=== PATIENT | male | born 1940 | race Caucasian/White ===

== ENCOUNTER → 2024-01-05 09:21 | Outpatient (REF) | payer MEDICARE, OTHER, SELFPAY ==
[2024-01-05 11:19] LABS: % Basophils 1.3 % (0-2); % Eosinophils 7.1 % (0-6); % Immature Granulocytes 0.4 % (0-0.5); % Lymphocytes 20.5 % (20.5-51.1); % Monocytes 9.7 % (1.7-9.3); Absolute Basophils 0.1 10^3/uL (0-0.2); Absolute Eosinophils 0.4 10^3/uL (0-0.7); Absolute Lymphocytes 1.1 10^3/uL (1.2-3.4); Absolute Monocytes 0.5 10^3/uL (0.1-0.6); Absolute Neutrophils 3.3 10^3/uL (1.4-6.5); Hemoglobin 12.8 g/dL (13.0-18.0); Mean Corp Hgb Conc. 33.7 g/dL (33.0-37.0); Mean Corpuscular Hgb 31.8 pg (27.0-31.0); Mean Corpuscular Volume 94.3 fL (80.0-94.0); Mean Platelet Volume 9.6 fL (7.4-10.4); Nucleated Red Blood Cells % 0 % (-); Platelet Count 240 10^3/uL (130-400); Red Blood Cell Count 4.03 10^6/uL (4.70-6.10); Red Cell Dist. Width 12.2 % (11.5-14.5); White Blood Cell Count 5.4 10^3/uL (4.8-10.8)
[2024-01-05 11:49] LABS: ALT (SGPT) 12 U/L (0-50); AST (SGOT) 25 U/L (17-59); Alkaline Phosphatase 83 U/L (38-126); Blood Urea Nitrogen 21 mg/dl (9-20); Calcium 9.7 mg/dl (8.4-10.2); Carbon Dioxide 28 mmol/L (22-30); Chloride 105 mmol/L (98-107); Glucose 107 mg/dl (70-99); HDL Cholesterol 58 mg/dl; LDL Cholesterol, Calculated 59 mg/dl; Potassium 4.5 mmol/L (3.5-5.1); Sodium 139 mmol/L (135-145); Total Bilirubin 0.8 mg/dl (0.2-1.3); Total Cholesterol 137 mg/dl (50-199); Total Protein 6.7 g/dl (6.3-8.2); Triglyceride 100 mg/dl (10-149); Very Low Density Lipoprotein 20 mg/dl (0-30); eGFR > 60.00
[2024-01-05 12:03] LABS: Free T4 1.27 ng/dl (0.78-2.19)
[2024-01-05 12:17] LABS: PSA, Total - Screen 0.87 ng/ml (0.0-4.0); TSH < 0.02 uIU/ml (0.47-4.68)
== END ==
LOC: REG 09:21
PROVIDERS: ATTENDING PHYSICIAN Family Medicine
DX: N18.32 Chronic kidney disease, stage 3b (principal); E03.9 Hypothyroidism, unspecified; E78.2 Mixed hyperlipidemia; I10 Essential (primary) hypertension; Z12.5 Encounter for screening for malignant neoplasm of prostate
CPT/HCPCS: 36415; 80053; 80061; 84439; 84443; 85025; G0103

== ENCOUNTER 2024-02-22 09:28 | Emergency (ER) | payer MEDICARE, OTHER, SELFPAY ==
[2024-02-22 09:43] VITALS: BP 144/74
[2024-02-22 09:58] VITALS: BMI 23.4
[2024-02-22 09:59] VITALS: BP 144/80
[2024-02-22 10:00] VITALS: BP 144/80
--- NOTE | 2024-02-22 10:25 | ED.MUSCINJ ---
HPI-Injury
General
Chief Complaint: Fall
Source: patient
Exam Limitations: none
Time Seen by Provider: 02/22/24 10:17
History of Present Illness-Injury
Initial Injury comments:
83-year-old male presents after a fall he sustained 2 days ago he tripped and hit the right side of his head and injured his neck. He notes increased neck pain and stiffness today. He denies any numbness or weakness to the arms or legs. No bowel
or bladder dysfunction. He denies significant headache. He is on Plavix. No other complaints at this time
Past History
Past History
ED Past Medical History: GERD, HTN, Hypercholesterolemia, Hypothyroidism and Other (Osteoarthritis, carotid artery stenosis status post right carotid endarterectomy, transient global amnesia, colon polyps, hiatal hernia, Schatzki's ring, chronic
kidney disease, kidney stones, gout, degenerative disc disease, basal cell carcinoma, prediabetes)
Social History
Tobacco: Former smoker
Phy Exam
Physical Exam
Physical Exam:
General: Well-appearing male no acute respiratory distress
HEENT: Normocephalic atraumatic
Heart: Regular rate and rhythm no murmurs
Lungs: Clear no wheeze or rales
Musculoskeletal exam: Tenderness noted diffusely about the cervical spine but good range of motion all extremities cervical spine and collar
Neurologic: Alert and oriented no facial asymmetry good strength to the upper and lower extremities conversing appropriately
Injury Course
Orders/Labs/Results
Orders:
Orders
02/22/24 10:[address] Cervical Spine W/o Iv Contr Urgent
Comment:
Reason For Exam: fall
CT Head W/o Iv Contrast Urgent
Comment:
Reason For Exam: fall
MDM/Problems Addressed
Differential Diagnosis Includes:
Mechanical fall with head strike and neck discomfort. Patient in cervical collar. Consider cervical strain versus fracture versus intracranial hemorrhage. CT of the head and cervical spine pending
*Critical Care Note
Total Time (30-74mins, 75-104mins- exclusive of procedures): Not Applicable
Update Note
Update Note:
Cervical spine and CT of head were both reviewed and are negative. Suspect cervical strain. Recommended warm compresses and Tylenol. Stable for discharge
ED Attending Note
-
Portions of this chart may have been created with voice recognition software.� Occasional wrong word or��sound alike� substitutions may have occurred due to the inherent limitations of voice recognition software.
Discharge Plan
Departure
Patient Disposition: Home (Routine Discharge)
Date of Disposition: 02/22/24
Time of Disposition: 12:49
Patient with high blood pressure during this ER visit?: No
Discharge Problem:
Cervical strain
Instructions: Preventing falls in adults
Prescriptions:
No Action
atorvastatin 20 MG tablet
20 mg PO QPM
famotidine 20 MG tablet
20 mg PO QPM
Centrum Silver Tablet
1 tab PO DAILY
Protonix:
20 mg PO BID
Synthroid
0.1 mg PO .ONCE A WEEK
Synthroid
0.2 mg PO .6 DAYS A WEEK
mupirocin 1 APPLIC ointment
1 applic intranasal BID Qty: 1 0RF
Patient Comments:
pt states he started as ordered 8 last dose this am 0500
oxycodone 5 MG tablet
5 mg PO Q6HPRN PRN (Reason: moderate-severe pain) Qty: 35 0RF
Rx Instructions:
1 tab moderate pain or 2 if pain severe
Dx total joint replacement
ongoing therapy
ondansetron HCl 4 MG tablet
4 mg PO Q6HPRN PRN (Reason: nausea) Qty: 15 0RF
Rx Instructions:
Take 1/2 hour prior to Oxycodone if experiencing recurrent nausea
acetaminophen 500 MG tablet
1,000 mg PO Q6H Qty: 1 0RF
Rx Instructions:
Do not exceed >4000 mg daily.
docusate sodium 100 MG capsule
100 mg PO BID Qty: 1 0RF
sennosides [senna] 8.6 MG tablet
8.6 mg PO BID Qty: 2 0RF
aspirin 325 MG tablet
325 mg PO DAILY Qty: 1 0RF
Rx Instructions:
Take daily x4 weeks for blood clot prevention
clopidogrel 75 MG tablet
75 mg PO DAILY Qty: 0 0RF
Rx Instructions:
Resume 04/16/20. If experiencing incisional bleeding, call [employer] for advice before restarting
oxycodone 5 mg tablet
5 mg PO Q4H PRN (Reason: pain) Qty: 20 0RF
prednisone 20 mg tablet
20 mg PO BID Qty: 14 0RF
meclizine 25 mg tablet
25 mg PO TID PRN (Reason: dizziness) Qty: 10 0RF
Referrals:
Patricia Combs DO [Family Provider] -
Activity Restrictions/Additional Instructions:
Continue with warm compresses to the neck. Use Tylenol for pain. Return if worse otherwise follow-up with your family doctor
Interventions
Interventions:
*Risk Screen - Suicide Last Done: 02/22/24 09:59
*General Assessment Last Done: 02/22/24 09:59
*Neglect/Abuse Screening Last Done: 02/22/24 09:59
ED- Fall Risk Assessment Last Done: 02/22/24 09:59
*ED COVID-19 Vaccine History Last Done: 02/22/24 09:43
ED-Musculoskeletal Assessment Last Done: 02/22/24 09:59
ED- Neurological Assessment Last Done: 02/22/24 09:59
ED-Skin Assessment Last Done: 02/22/24 09:59
Discharge Date and Time
Print Language: SLOVAK
[2024-02-22 11:00] VITALS: BP 165/85
== END 2024-02-22 13:08 | disposition home or self-care (01) ==
LOC: EMR 09:28
PROVIDERS: EMERGENCY PHYSICIAN Emergency Medicine; FAMILY PHYSICIAN Family Medicine
DX: S16.1XXA Strain of muscle, fascia and tendon at neck level, initial encounter (principal); W01.0XXA Fall on same level from slipping, tripping and stumbling without subsequent striking against object, initial encounter
CPT/HCPCS: 99284; 70450; 72125; 99285

== ENCOUNTER → 2024-03-14 06:41 | Day surgery (SDC) | payer MEDICARE, OTHER, SELFPAY | LOC: GI 06:41 | PROVIDERS: ATTENDING PHYSICIAN Internal Medicine | DX: Z12.11 Encounter for screening for malignant neoplasm of colon (principal); D12.3 Benign neoplasm of transverse colon; K62.1 Rectal polyp; K57.30 Diverticulosis of large intestine without perforation or abscess without bleeding; Z86.010 Personal history of colon polyps; Z80.0 Family history of malignant neoplasm of digestive organs | CPT/HCPCS: 45385; 88305 ==

== ENCOUNTER → 2024-03-22 08:22 | Outpatient (REF) | payer MEDICARE, OTHER, SELFPAY ==
[2024-03-22 09:55] LABS: % Basophils 1.3 % (0-2); % Immature Granulocytes 0.4 % (0-0.5); % Lymphocytes 22.4 % (20.5-51.1); % Monocytes 11.9 % (1.7-9.3); Absolute Basophils 0.1 10^3/uL (0-0.2); Absolute Eosinophils 0.2 10^3/uL (0-0.7); Absolute Monocytes 0.6 10^3/uL (0.1-0.6); Absolute Neutrophils 2.7 10^3/uL (1.4-6.5); Hematocrit 38.1 % (39.0-52.0); Hemoglobin 13.2 g/dL (13.0-18.0); Mean Corp Hgb Conc. 34.6 g/dL (33.0-37.0); Mean Corpuscular Hgb 31.9 pg (27.0-31.0); Mean Platelet Volume 9.3 fL (7.4-10.4); Nucleated Red Blood Cells % 0 % (-); Platelet Count 247 10^3/uL (130-400); Red Blood Cell Count 4.14 10^6/uL (4.70-6.10); Red Cell Dist. Width 12.5 % (11.5-14.5); White Blood Cell Count 4.6 10^3/uL (4.8-10.8)
[2024-03-22 10:24] LABS: Iron 140 ug/dl (49-181)
[2024-03-22 10:34] LABS: Percent Saturation 42 % (20-50); Total Iron Binding Capacity 326 ug/dl (261-462)
[2024-03-22 10:59] LABS: Ferritin 43.9 ng/ml (17.9-464.0)
[2024-03-22 11:14] LABS: Vitamin B12 844 pg/ml (239-931)
== END ==
LOC: REG 08:22
PROVIDERS: ATTENDING PHYSICIAN Family Medicine
DX: D64.9 Anemia, unspecified (principal); R79.89 Other specified abnormal findings of blood chemistry; R42 Dizziness and giddiness
CPT/HCPCS: 36415; 82607; 82728; 83540; 83550; 85025

== ENCOUNTER → 2024-03-25 16:49 | Outpatient (REF) | payer MEDICARE, OTHER, SELFPAY ==
[2024-03-25 17:53] LABS: Blood Urea Nitrogen 23 mg/dl (9-20); Calcium 9.6 mg/dl (8.4-10.2); Carbon Dioxide 26 mmol/L (22-30); Chloride 105 mmol/L (98-107); Glucose 88 mg/dl (70-99); Potassium 4.6 mmol/L (3.5-5.1); Sodium 138 mmol/L (135-145); eGFR > 60.00
== END ==
LOC: REG 16:49
PROVIDERS: ATTENDING PHYSICIAN Nurse Practitioner Family
DX: Z01.810 Encounter for preprocedural cardiovascular examination (principal); R73.01 Impaired fasting glucose; R79.9 Abnormal finding of blood chemistry, unspecified; Z01.818 Encounter for other preprocedural examination
CPT/HCPCS: 36415; 80048

== ENCOUNTER → 2024-03-26 07:35 | Outpatient (REF) | payer MEDICARE, OTHER, SELFPAY | LOC: RCS 07:35 | PROVIDERS: ATTENDING PHYSICIAN Nurse Practitioner Family | DX: Z01.810 Encounter for preprocedural cardiovascular examination (principal) | CPT/HCPCS: 93005 ==

== ENCOUNTER → 2024-12-06 08:00 | Outpatient (REF) | payer MEDICARE, OTHER, SELFPAY ==
[2024-12-06 09:07] LABS: % Basophils 0.8 % (0-2); % Eosinophils 16.9 % (0-6); % Immature Granulocytes 0.3 % (0-0.5); % Lymphocytes 19.8 % (20.5-51.1); % Monocytes 10.9 % (1.7-9.3); % Neutrophils 51.3 % (42.2-75.2); Absolute Basophils 0.1 10^3/uL (0-0.2); Absolute Eosinophils 1.2 10^3/uL (0-0.7); Absolute Lymphocytes 1.4 10^3/uL (1.2-3.4); Absolute Monocytes 0.8 10^3/uL (0.1-0.6); Absolute Neutrophils 3.7 10^3/uL (1.4-6.5); Hematocrit 35.7 % (39.0-52.0); Hemoglobin 12.5 g/dL (13.0-18.0); Mean Corpuscular Hgb 32.4 pg (27.0-31.0); Mean Corpuscular Volume 92.5 fL (80.0-94.0); Mean Platelet Volume 9.2 fL (7.4-10.4); Nucleated Red Blood Cells % 0 % (-); Platelet Count 246 10^3/uL (130-400); Red Blood Cell Count 3.86 10^6/uL (4.70-6.10); Red Cell Dist. Width 13.2 % (11.5-14.5); White Blood Cell Count 7.2 10^3/uL (4.8-10.8)
[2024-12-06 09:49] LABS: ALT (SGPT) 13 U/L (0-50); AST (SGOT) 21 U/L (17-59); Albumin 3.9 g/dl (3.5-5.0); Alkaline Phosphatase 93 U/L (38-126); Blood Urea Nitrogen 18 mg/dl (9-20); Carbon Dioxide 31 mmol/L (22-30); Chloride 102 mmol/L (98-107); Glucose 110 mg/dl (70-99); HDL Cholesterol 64 mg/dl; LDL Cholesterol, Calculated 60 mg/dl; Potassium 4.5 mmol/L (3.5-5.1); Sodium 138 mmol/L (135-145); Total Bilirubin 0.7 mg/dl (0.2-1.3); Total Cholesterol 142 mg/dl (50-199); Total Protein 6.6 g/dl (6.3-8.2); Triglyceride 92 mg/dl (10-149); Very Low Density Lipoprotein 18 mg/dl (0-30); eGFR > 60.00
[2024-12-06 10:18] LABS: TSH 0.13 uIU/ml (0.47-4.68)
== END ==
LOC: REG 08:00
PROVIDERS: ATTENDING PHYSICIAN Family Medicine
DX: I10 Essential (primary) hypertension (principal); R79.89 Other specified abnormal findings of blood chemistry; E78.2 Mixed hyperlipidemia; K21.9 Gastro-esophageal reflux disease without esophagitis
CPT/HCPCS: 36415; 80053; 80061; 84443; 85025

== ENCOUNTER → 2024-12-14 10:59 | Outpatient (REF) | payer MEDICARE, OTHER, SELFPAY | LOC: RAD 10:59 | PROVIDERS: ATTENDING PHYSICIAN Family Medicine | DX: R09.89 Other specified symptoms and signs involving the circulatory and respiratory systems (principal) | CPT/HCPCS: 71046 ==

== ENCOUNTER → 2024-12-23 09:39 | Outpatient (REF) | payer MEDICARE, OTHER, SELFPAY | LOC: RST 09:39 | PROVIDERS: ATTENDING PHYSICIAN Family Medicine | DX: R13.10 Dysphagia, unspecified (principal) | CPT/HCPCS: 74230; 92611 ==

== ENCOUNTER → 2025-01-05 14:28 | Outpatient (REF) | payer MEDICARE, OTHER, SELFPAY | LOC: REG 14:28 | PROVIDERS: ATTENDING PHYSICIAN Family Medicine | DX: R19.7 Diarrhea, unspecified (principal) | CPT/HCPCS: 87045; 87046; 87324; 87328; 87329; 87427; 87449; 89055 ==

== ENCOUNTER 2025-02-22 07:30 | Outpatient (RCR) | payer MEDICARE, OTHER, SELFPAY | END 2025-02-22 23:59 | disposition home or self-care (01) | LOC: RST 07:30 | PROVIDERS: ATTENDING PHYSICIAN Otolaryngology; FAMILY PHYSICIAN Family Medicine | DX: R13.10 Dysphagia, unspecified (principal); R13.13 Dysphagia, pharyngeal phase | CPT/HCPCS: 92526; 92610 ==

== ENCOUNTER 2025-03-30 14:04 | Outpatient (RCR) | payer MEDICARE, OTHER, SELFPAY | END 2025-03-30 23:59 | disposition home or self-care (01) | LOC: RST 14:04 | PROVIDERS: ATTENDING PHYSICIAN Otolaryngology; FAMILY PHYSICIAN Family Medicine | DX: R13.10 Dysphagia, unspecified (principal); R13.13 Dysphagia, pharyngeal phase | CPT/HCPCS: 92526 ==

== ENCOUNTER → 2025-04-25 09:52 | Outpatient (REF) | payer MEDICARE, OTHER, SELFPAY | LOC: RST 09:52 | PROVIDERS: ATTENDING PHYSICIAN Otolaryngology; FAMILY PHYSICIAN Family Medicine | DX: R13.12 Dysphagia, oropharyngeal phase (principal) | CPT/HCPCS: 74230; 92611 ==

== ENCOUNTER 2025-04-27 10:17 | Outpatient (RCR) | payer MEDICARE, OTHER, SELFPAY | END 2025-04-27 23:59 | disposition home or self-care (01) | LOC: RST 10:17 | PROVIDERS: ATTENDING PHYSICIAN Otolaryngology; FAMILY PHYSICIAN Family Medicine | DX: R13.10 Dysphagia, unspecified (principal); R13.13 Dysphagia, pharyngeal phase | CPT/HCPCS: 92526 ==

== ENCOUNTER → 2025-05-09 08:20 | Outpatient (REF) | payer MEDICARE, OTHER, SELFPAY ==
[2025-05-09 09:50] LABS: Hematocrit 36.4 % (39.0-52.0); Hemoglobin 12.2 g/dL (13.0-18.0); Mean Corp Hgb Conc. 33.5 g/dL (33.0-37.0); Mean Corpuscular Volume 92.2 fL (80.0-94.0); Nucleated Red Blood Cells % 0 % (-); Platelet Count 261 10^3/uL (130-400); Red Cell Dist. Width 12.5 % (11.5-14.5)
[2025-05-09 14:42] LABS: ALT (SGPT) 14 U/L (0-50); AST (SGOT) 21 U/L (17-59); Albumin 4.1 g/dl (3.5-5.0); Alkaline Phosphatase 86 U/L (38-126); Blood Urea Nitrogen 15 mg/dl (9-20); Calcium 10.2 mg/dl (8.4-10.2); Carbon Dioxide 31 mmol/L (22-30); Chloride 106 mmol/L (98-107); Glucose 107 mg/dl (70-99); Potassium 4.3 mmol/L (3.5-5.1); Sodium 139 mmol/L (135-145); Total Protein 6.8 g/dl (6.3-8.2); eGFR > 60.00
[2025-05-09 15:13] LABS: TSH < 0.02 uIU/ml (0.47-4.68)
== END ==
LOC: REG 08:20
PROVIDERS: ATTENDING PHYSICIAN Family Medicine
DX: N18.32 Chronic kidney disease, stage 3b (principal); E89.0 Postprocedural hypothyroidism; R79.89 Other specified abnormal findings of blood chemistry
CPT/HCPCS: 36415; 80053; 84439; 84443; 85025

== ENCOUNTER 2025-06-15 07:08 | Outpatient (RCR) | payer MEDICARE, OTHER, SELFPAY | END 2025-06-15 23:59 | disposition home or self-care (01) | LOC: RST 07:08 | PROVIDERS: ATTENDING PHYSICIAN Otolaryngology; FAMILY PHYSICIAN Family Medicine | DX: R13.10 Dysphagia, unspecified (principal); R13.13 Dysphagia, pharyngeal phase | CPT/HCPCS: 92526 ==

== ENCOUNTER 2025-07-20 06:44 | Outpatient (RCR) | payer MEDICARE, OTHER, SELFPAY | END 2025-07-20 23:59 | disposition home or self-care (01) | LOC: RST 06:44 | PROVIDERS: ATTENDING PHYSICIAN Otolaryngology; FAMILY PHYSICIAN Family Medicine | DX: R13.10 Dysphagia, unspecified (principal); R13.13 Dysphagia, pharyngeal phase | CPT/HCPCS: 92526 ==